=== PATIENT | male | born 1965 | race Caucasian/White ===

== ENCOUNTER → 2020-12-09 | Outpatient (CLI) | payer OTHER ==
[~2020-12-09] MED LIST: ACET325; AMLO5 PO; Advil200 M1; DOCU100 PO; LISI10 PO; MECL25 PO; Milk Of Ma400 MG/5 M; NAPR220 PO; Roxicet 5-3251 EACH PO; SULTRIDS PO
== END | disposition home or self-care (01) ==
LOC: LAB SHORT 11:18
DX: D22.5 Melanocytic nevi of trunk (principal)
CPT/HCPCS: 88305

== ENCOUNTER 2023-04-02 06:05 | Day surgery (SDC) | payer OTHER ==
[~2023-04-02] VITALS: Ht 170.2 cm; Wt 81.2 kg
--- NOTE | 2023-04-02 07:23 | NUR ---
[facility]23 [facility]23 [facility]
--- NOTE | 2023-04-02 08:11 | NUR ---
04/02/23 0811 Elizabeth Corbin A PILLOW UNDER HEAD, ARMS SECURED ON PADDED ARM BOARDS, RIGHT HIP BUMP, RIGHT LEG POSITIONED IN FERKEL, LEFT LEG SECURED WITH TAPE BY DR ASENCIO.
[2023-04-02 09:46] VITALS: BP 124/89
== END 2023-04-02 10:23 | disposition home or self-care (01) ==
LOC: ORSCSDS 06:05
PROVIDERS: Podiatrist Foot & Ankle Surgery
PROC: 0SBF4ZZ Excision of Right Ankle Joint, Percutaneous Endoscopic Approach (ICD-10-PCS; principal; 2023-04-02 07:30)
PROC: 0MQQ0ZZ Repair Right Ankle Bursa and Ligament, Open Approach (ICD-10-PCS; principal; 2023-04-02 07:30)
DX: M24.871 Other specific joint derangements of right ankle, not elsewhere classified (principal); M25.371 Other instability, right ankle; I10 Essential (primary) hypertension; Z79.899 Other long term (current) drug therapy
CPT/HCPCS: A9270; C1713; J0171; J0690; J1885; J2250; J2704; J2795; J3010; J7120